=== PATIENT | female | born 1970 ===

== ENCOUNTER 2018-07-26 10:56 | Emergency (ER) | payer OTHER ==
[2018-07-26 11:04] VITALS: RESP 18; TEMP 97.6
--- NOTE | 2018-07-26 11:42 | C.PDOC ---
History Of Present Illness 48 year old female presents to the ED for evaluation of ongoing left ankle pain and swelling s/p twist injury sustained 3 days ago. The patient reports twisting her left ankle while home. Denies fever, numbness, tingling, other injuries, and any other associated symptoms. Time Seen by Provider: 07/26/18 11:07 Chief Complaint (Nursing): Lower Extremity Problem/Injury History Per: Patient History/Exam Limitations: no limitations Onset/Duration Of Symptoms: Days Current Symptoms Are (Timing): Still Present - Hip Description Of Injury: Other (twist injury. ) Past Medical History Reviewed: Historical Data, Nursing Documentation, Vital Signs Vital Signs: Last Vital Signs Temp 97.6 F 07/26/18 11:01 Pulse 66 07/26/18 11:01 Resp 18 07/26/18 11:01 BP 158/88 H 07/26/18 11:01 Pulse Ox 99 07/26/18 11:01 - Medical History PMH: HTN Family History: States: Unknown Family Hx - Social History Hx Alcohol Use: No Hx Substance Use: No - Immunization History Hx Tetanus Toxoid Vaccination: No Hx Influenza Vaccination: No Hx Pneumococcal Vaccination: No Review Of Systems Except As Marked, All Systems Reviewed And Found Negative. Musculoskeletal: Positive for: Other (left ankle pain. ) Physical Exam - Physical Exam Appears: Non-toxic, No Acute Distress Skin: Normal Color, Warm, Dry Head: Atraumatic, Normacephalic Eye(s): bilateral: Normal Inspection, PERRL, EOMI Nose: Normal Oral Mucosa: Moist Neck: Supple Chest: Symmetrical Cardiovascular: Rhythm Regular, No Murmur Respiratory: Normal Breath Sounds, No Rales, No Rhonchi, No Wheezing Gastrointestinal/Abdominal: Normal Exam, No Soft, No Tenderness Extremity: Tenderness (to the left lateral malleolus. (-) no tenderness to the left foot. ), No Deformity, Swelling (and ecchymosis to left lateral malleolus. swelling to the left foot. ) Extremity: Bilateral: Normal ROM Pulses: Left Dorsalis Pedis: Normal, Right Dorsalis Pedis: Normal Neurological/Psych: Oriented x3, Normal Speech, Normal Motor, Normal Sensation, Normal Reflexes ED Course And Treatment O2 Sat by Pulse Oximetry: 99 (RA) Pulse Ox Interpretation: Normal - Other Rad LT x-ray X-Ray: Interpreted by Me, Viewed By Me Interpretation: x-ray shows distal fibula fracture. Medical Decision Making Medical Decision Making: Plan: -Left ankle x-ray -Brenda Progress/Update: X-ray: shows distal fibula fracture Posterior leg splint applied. Crutches given. Advised to follow up with orthopedics within 1-2 days. Disposition Counseled Patient/Family Regarding: Studies Performed, Diagnosis, Need For Followup, Rx Given - Disposition Referrals: Nehemias Miranda MD [Staff Provider] - Disposition: HOME/ ROUTINE Disposition Time: 11:40 Condition: STABLE Additional Instructions: follow up with Dr. Miranda within 2 days call to make an appointment take pain medication as needed return to ER if symptoms worsens or progress rest, ice, elevate leg Prescriptions: Acetaminophen/Codeine [Tylenol/Codeine 300 MG/30 MG] 1 tab PO Q6H PRN #12 tab PRN Reason: Pain, Severe (8-10) Naproxen [Naprosyn] 500 mg PO BID PRN #16 tab PRN Reason: Pain, Moderate (4-7) Instructions: Fibula Fracture (DC) Forms: General Discharge Instructions, [facility] (E[place]an), Work Excuse - Clinical Impression Clinical Impression: Closed fibular fracture - Scribe Statement The provider has reviewed the documentation as recorded by the Scribe (Sherrie Landa) Provider Attestation: All medical record entries made by the Scribe were at my direction and personally dictated by me. I have reviewed the chart and agree that the record accurately reflects my personal performance of the history, physical exam, medical decision making, and the department course for this patient. I have also personally directed, reviewed, and agree with the discharge instructions and disposition.
--- NOTE | 2018-07-26 11:50 | RAD ---
Date of service: 07/26/2018 PROCEDURE: Left Ankle Radiographs. HISTORY: ankle sprain COMPARISON: None available. FINDINGS: BONES: There is an acute nondisplaced fracture in the lateral malleolus. There is periarticular bone demineralization. Bone alignment is normal. JOINTS: Normal. Ankle mortise maintained. Talar dome intact SOFT TISSUES: There is moderate lateral soft tissue swelling. OTHER FINDINGS: None. IMPRESSION: Acute nondisplaced fracture in the lateral malleolus with moderate overlying soft tissue swelling.
[2018-07-26 12:35] VITALS: BP 164/95; PULSE 61
[2018-07-26 13:05] VITALS: O2SAT 99
== END 2018-07-26 12:37 | disposition home or self-care (01) ==
LOC: C.ER 10:56
DX: S82.492A Other fracture of shaft of left fibula, initial encounter for closed fracture (principal); X50.1XXA Overexertion from prolonged static or awkward postures, initial encounter; Y92.009 Unspecified place in unspecified non-institutional (private) residence as the place of occurrence of the external cause